=== PATIENT | female | born 1995 | race Caucasian/White ===

== ENCOUNTER 2018-03-08 23:32 | Emergency (ER) | payer OTHER ==
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
[2018-03-08 23:55] VITALS: BP 132/96; PULSE 101; TEMP 98.1; BMI 22.8
[2018-03-08] MEDS ORDERED: ACETAMINOPHEN 325 MG TABLET (FP) PO ONE (23:57)
[2018-03-09] MEDS ORDERED: ACETAMINOPHEN 325 MG TABLET (FP) ONE (00:08)
[2018-03-09 00:39] LABS: EOS % 1.9 % (0-4.5); HEMOGLOBIN 12.7 GM/dL (10.7-15.3); LYMPH % 24.8 % (8-40); MCH 31.6 pg (25.7-33.7); MCHC 34.4 g/dl (32.0-36.0); MEAN CELL VOLUME 91.8 fl (80-96); MEAN PLT VOLUME 8.9 fl (7.5-11.1); MONO % 12.7 % (3.8-10.2); NEUT % 59.6 % (42.8-82.8); PLATELET COUNT 259 K/MM3 (134-434); RBC 4.03 M/mm3 (3.60-5.2); RDW 12.7 % (11.6-15.6); WHITE BLOOD COUNT 4.6 K/mm3 (4.0-10.0)
[2018-03-09 00:41] LABS: URINE APPEARANCE CLEAR; URINE BILIRUBIN NEGATIVE (<2.0 mg/dL); URINE COLOR LTYELLOW; URINE GLUCOSE (UA) NEGATIVE (NEGATIVE); URINE KETONE NEGATIVE (NEGATIVE); URINE LEUK ESTERASE NEGATIVE (NEGATIVE); URINE NITRITE NEGATIVE (NEGATIVE); URINE PROTEIN NEGATIVE (NEGATIVE); URINE UROBILINOGEN NEGATIVE mg/dL (0.2-1.0)
[2018-03-09 00:49] LABS: EPI CELLS RARE /HPF (FEW); URINE BACTERIA RARE /hpf (NONE SEEN)
== END 2018-03-09 04:48 | disposition home or self-care (01) ==
LOC: JER 23:32
DX: O26.891 Other specified pregnancy related conditions, first trimester (principal); S63.621A Sprain of interphalangeal joint of right thumb, initial encounter; V43.52XA Car driver injured in collision with other type car in traffic accident, initial encounter; Y92.414 Local residential or business street as the place of occurrence of the external cause; Y93.89 Activity, other specified; Y99.8 Other external cause status; Z3A.09 9 weeks gestation of pregnancy
CPT/HCPCS: 36415; 73130-TC-RT-FY; 76801-TC; 81003; 81015; 84702; 85025; 86850; 86900; 86901; 87086; 99282-25

== ENCOUNTER 2018-09-30 06:24 | Inpatient (IN) | payer OTHER ==
[2018-09-30] MEDS ORDERED: DEXTROSE 5%-LACTATED RINGERS 1,000 ML IV SCH ×2 (06:25→09:30)
[2018-09-30 07:54] VITALS: BMI 31.3
[2018-09-30 07:57] LABS: ANION GAP 9 MMOL/L (8-16); BLOOD UREA NITROGEN 12 mg/dL (7-18); CALCIUM 8.5 mg/dL (8.5-10.1); CHLORIDE 105 mmol/L (98-107); CO2 20 mmol/L (21-32); CREATININE 0.4 mg/dL (0.55-1.3); GLUCOSE,RANDOM 114 mg/dL (74-106); POTASSIUM 4.1 mmol/L (3.5-5.1); SODIUM 134 mmol/L (136-145)
[2018-09-30] MEDS ORDERED: BUTORPHANOL TARTRATE 1 MG/ML VIAL ONE ×2 (08:13)
[2018-09-30] MEDS ORDERED: PROMETHAZINE HCL 25 MG/1 ML VIAL ONE (08:14)
[2018-09-30] MEDS ORDERED: PROMETHAZINE HCL 25 MG/1 ML VIAL IVPUSH ONE (08:15)
[2018-09-30] MEDS ORDERED: BUTORPHANOL TARTRATE 1 MG/ML VIAL IVPUSH ONE (08:15)
[2018-09-30 08:21] LABS: BASO % 0.2 % (0-2.0); EOS % 0.1 % (0-4.5); HEMATOCRIT 38.2 % (32.4-45.2); HEMOGLOBIN 13.8 GM/dL (10.7-15.3); MCH 33.9 pg (25.7-33.7); MCHC 36.1 g/dl (32.0-36.0); MEAN CELL VOLUME 93.7 fl (80-96); MEAN PLT VOLUME 9.6 fl (7.5-11.1); MONO % 3.2 % (3.8-10.2); NEUT % 86.5 % (42.8-82.8); PLATELET COUNT 274 K/MM3 (134-434); RBC 4.08 M/mm3 (3.60-5.2); RDW 12.8 % (11.6-15.6); WHITE BLOOD COUNT 6.7 K/mm3 (4.0-10.0)
[2018-09-30 08:24] LABS: INR 0.95 (0.83-1.09); PROTHROMBIN TIME (PATIENT) 11.2 SEC (9.7-13.0)
[2018-09-30 08:27] LABS: ACTIVATED PTT 25.2 SECONDS (25.2-36.5)
[2018-09-30] MEDS ORDERED: TUBERCULIN PPD 5 TU/0.1ML SYRINGE (IN PATIENT USE ONLY) ID ONE (09:15)
--- NOTE | 2018-09-30 09:32 | HP ---
Past Medical History - Admission Chief Complaint: Pain in labor History of Present Illness: 23 yo , LMP 01/04/18, EDC 10/11/18 @ 38.3 weeks gestation, admitted for labor pain. Upon admission she was 5cm dilated with intact membrane. History Source: Patient Limitations to Obtaining History: No Limitations - Past Medical History ...: 1 ...Para: 0 ...Term: 0 ...: 0 ...Spon : 0 ...Induced : 0 ...Multiple Gestation: 0 ...LMP: 01/04/18 ... Weeks Gestation by Dates: 38.3 ...EDC by Dates: 10/11/18 - Past Surgical History Hx Myomectomy: No Hx Transabdominal Cerclage: No - Smoking History Smoking history: Unknown if ever smoked Have you smoked in the past 12 months: No - Alcohol/Substance Use Hx Alcohol Use: No History of Substance Use: reports: None - Social History Usual Living Arrangement: Yes: With Significant Other History of Recent Travel: No Home Medications - Allergies Allergies/Adverse Reactions: Allergies Allergy/AdvReac Type Severity Reaction Status Date / Time No Known Allergies Allergy Verified 09/30/18 07:56 - Home Medications Home Medications: Ambulatory Orders Vitamin Tablet 1 tab PO DAILY 09/30/18 Family Disease History - Family Disease History Family History: Unremarkable Review of Systems - Review of Systems Constitutional: reports: No Symptoms Eyes: reports: No Symptoms HENT: reports: No Symptoms Neck: reports: No Symptoms Cardiovascular: reports: No Symptoms Respiratory: reports: No Symptoms Gastrointestinal: reports: No Symptoms Genitourinary: reports: Pain Breasts: reports: No Symptoms Reported Musculoskeletal: reports: No Symptoms Integumentary: reports: No Symptoms Neurological: reports: No Symptoms Endocrine: reports: No Symptoms Hematology/Lymphatic: reports: No Symptoms Psychiatric: reports: No Symptoms Pain Intensity: 7 Physical Exam - Maternity Vital Signs: Vital Signs Temperature 98.4 F 09/30/18 08:00 Pulse Rate 95 H 09/30/18 08:00 Respiratory Rate 20 09/30/18 09:00 Blood Pressure 135/82 09/30/18 08:00 O2 Sat by Pulse Oximetry (%) Constitutional: Yes: Well Nourished Eyes: Yes: Conjunctiva Clear HENT: Yes: Atraumatic Neck: Yes: Supple Cardiovascular: Yes: Regular Rate and Rhythm Lungs: Clear to auscultation - Abdominal Exam/OB Number of Fetuses: Single Presentation: Vertex - Vaginal Exam/OB Dilatation (cm): 5 Effacement (%): 100 Amniotic Membrane Status: Intact Station: -1 - Physical Exam ...Motor Strength: WNL Psychiatric: Yes: Alert, Oriented - Labs Lab Results: CBC, BMP 09/30/18 07:15 09/30/18 07:15 Problem List - Problems (1) Pain during labor Code(s): O99.89 - OTH DISEASES AND CONDITIONS COMPL PREG/CHLDBRTH; R52 - PAIN, UNSPECIFIED (2) 38 weeks gestation of Code(s): Z3A.38 - 38 WEEKS GESTATION OF Assessment/Plan Active labor Admit to L&D Analgesia as needed Anticipate
[2018-09-30] MEDS ORDERED: OXYTOCIN 20 UNITS in 0.9% NS 20 UNIT/1,000 ML INFUS.BAG IV ONE (10:26)
[2018-09-30] MEDS ORDERED: METHYLERGONOVINE MALEATE 0.2 MG/1 ML AMP IM PRN (11:14)
[2018-09-30] MEDS ORDERED: BISACODYL 10 MG SUPP.RECT RC PRN (11:14)
[2018-09-30] MEDS ORDERED: WITCH HAZEL 50% (TUCKS) 40 PAD/JAR PAD TP PRN (11:14)
[2018-09-30] MEDS ORDERED: BENZOCAINE 28 GM HEMORRHOIDAL OINTMENT TP PRN (11:14)
[2018-09-30] MEDS ORDERED: BENZOCAINE 20% 57 GM BOTTLE TP PRN (11:14)
[2018-09-30] MEDS ORDERED: OXYTOCIN 20 UNITS in 0.9% NS 20 UNIT/1,000 ML INFUS.BAG IV SCH (11:15)
--- NOTE | 2018-09-30 11:19 | PN ---
Delivery - Delivery Vaginal Delivery: Spontaneous Type of Anesthesia: Local Episiotomy/Laceration: Midline, 3rd degree EBL (cc): 300 Delivery, Single - Stages of Labor Date 1st Stage Initiatied: 09/30/18 Time 1st Stage Initiated: 05:00 Date 2nd Stage Initiated: 09/30/18 Date of Delivery: 09/30/18 - Feeding Plan Initial Plan: Exclusive throughout hospitalization Remarks - Remarks Remarks: Normal spontaneous vaginal delivery of a live girl over midline episiotomy. Nose / Oropharynx suctioned @ perineum. Cord clamped and cut. Baby handed to Nurse. Placenta expelled spontaneously intact. Episiotomy repaired in layers with 2.0 Chromic and 2.0 Biosyn.
[2018-09-30] MEDS ORDERED: ACETAMINOPHEN 325 MG TABLET (FP) ONE (12:45)
[2018-09-30] MEDS ORDERED: IBUPROFEN 600 MG TABLET (FP) PO ONE (12:46)
[2018-09-30] MEDS: ACETAMINOPHEN 325 MG TABLET (FP) PO PRN ×2 (12:55→23:29)
[2018-09-30] MEDS: IBUPROFEN 600 MG TABLET (FP) PO PRN ×2 (12:55→23:29)
[2018-09-30] MEDS: FERROUS SO4 325 MG TABLET (FP) PO SCH (22:06)
--- NOTE | 2018-10-01 08:15 | PN ---
Post Progress Note - Subjective Subjective: 23yo Para 1 statu spost vaginal delivery, seen and evaluated. Doing well. Post Day: 1 Type of Delivery: Vital Signs: Vital Signs Temperature 97.9 F 10/01/18 05:29 Pulse Rate 86 10/01/18 05:29 Respiratory Rate 20 10/01/18 05:29 Blood Pressure 114/56 L 10/01/18 05:29 O2 Sat by Pulse Oximetry (%) 99 09/30/18 11:30 Breast Exam: Yes: Soft Uterus: Yes: Fundus Firm Abdomen/GI: Yes: Abdomen soft, Tolerating PO Lochia: Yes: Rubra Lochia, amount: Small Extremities: Yes: Calves non-tender Activity: Ambulating - Labs Labs: CBC WBC 6.7 K/mm3 (4.0-10.0) 09/30/18 07:15 RBC 4.08 M/mm3 (3.60-5.2) 09/30/18 07:15 Hgb 13.8 GM/dL (10.7-15.3) 09/30/18 07:15 Hct 38.2 % (32.4-45.2) 09/30/18 07:15 MCV 93.7 fl (80-96) 09/30/18 07:15 MCH 33.9 pg (25.7-33.7) H 09/30/18 07:15 MCHC 36.1 g/dl (32.0-36.0) H 09/30/18 07:15 RDW 12.8 % (11.6-15.6) 09/30/18 07:15 Plt Count 274 K/MM3 (134-434) 09/30/18 07:15 MPV 9.6 fl (7.5-11.1) 09/30/18 07:15 Absolute Neuts (auto) 5.8 K/mm3 (1.5-8.0) 09/30/18 07:15 Neutrophils % 86.5 % (42.8-82.8) H D 09/30/18 07:15 Lymphocytes % 10.0 % (8-40) D 09/30/18 07:15 Monocytes % 3.2 % (3.8-10.2) L 09/30/18 07:15 Eosinophils % 0.1 % (0-4.5) D 09/30/18 07:15 Basophils % 0.2 % (0-2.0) 09/30/18 07:15 Nucleated RBC % 0 % (0-0) 09/30/18 07:15 Problem List - Problems (1) Pain during labor Code(s): O99.89 - OTH DISEASES AND CONDITIONS COMPL PREG/CHLDBRTH; R52 - PAIN, UNSPECIFIED (2) 38 weeks gestation of Code(s): Z3A.38 - 38 WEEKS GESTATION OF (3) Status post normal vaginal delivery Code(s): [id number] - Assessment/Plan Status post vaginal delivery Stable Continue routine care
[2018-10-01 08:47] LABS: BASO % 0.4 % (0-2.0); EOS % 0.9 % (0-4.5); HEMATOCRIT 30.4 % (32.4-45.2); LYMPH % 18.2 % (8-40); MCH 31.7 pg (25.7-33.7); MCHC 32.8 g/dl (32.0-36.0); MEAN CELL VOLUME 96.5 fl (80-96); MEAN PLT VOLUME 9.1 fl (7.5-11.1); MONO % 8.7 % (3.8-10.2); NEUT % 71.8 % (42.8-82.8); PLATELET COUNT 175 K/MM3 (134-434); RBC 3.15 M/mm3 (3.60-5.2); RDW 12.8 % (11.6-15.6); WHITE BLOOD COUNT 8.7 K/mm3 (4.0-10.0)
[2018-10-01] MEDS: PRENATAL VITAMINS W/ FOLIC ACID TABLET (FP) PO SCH (10:43)
[2018-10-01] MEDS: FERROUS SO4 325 MG TABLET (FP) PO SCH ×2 (10:43→21:04)
[2018-10-01] MEDS: ACETAMINOPHEN 325 MG TABLET (FP) PO PRN (10:44)
[2018-10-01] MEDS: IBUPROFEN 600 MG TABLET (FP) PO PRN (10:45)
[2018-10-01] MEDS ORDERED: SENNOSIDES/DOCUSATE COMBO (SENNA PLUS) TABLET (UD) PO PRN (22:00)
[2018-10-02] MEDS: ACETAMINOPHEN 325 MG TABLET (FP) PO PRN (01:23)
[2018-10-02] MEDS: IBUPROFEN 600 MG TABLET (FP) PO PRN (01:24)
[2018-10-02 08:47] VITALS: TEMP 98.2
[2018-10-02] MEDS: PRENATAL VITAMINS W/ FOLIC ACID TABLET (FP) PO SCH (09:55)
[2018-10-02] MEDS: FERROUS SO4 325 MG TABLET (FP) PO SCH (09:55)
--- NOTE | 2018-10-02 12:00 | DS ---
Physical Exam-SALES AND SERVICE AGENT Vital Signs: Vital Signs Temperature 98.2 F 10/02/18 08:44 Pulse Rate 78 10/02/18 08:44 Respiratory Rate 18 10/02/18 08:44 Blood Pressure 135/80 10/02/18 08:44 O2 Sat by Pulse Oximetry (%) 99 09/30/18 11:30 Constitutional: Yes: Well Nourished Eyes: Yes: Conjunctiva Clear HENT: Yes: Atraumatic Neck: Yes: Supple Cardiovascular: Yes: Regular Rate and Rhythm Respiratory: Yes: Regular Gastrointestinal: Yes: Normal Bowel Sounds External Genitalia: Yes: Normal ....Post : Yes: Uterus firm, Moderate lochia serosa Neurological: Yes: Alert, Oriented Psychiatric: Yes: Alert, Oriented Labs: CBC, BMP 10/01/18 06:45 09/30/18 07:15 Delivery - Delivery Vaginal Delivery: Spontaneous Type of Anesthesia: Local Episiotomy/Laceration: Midline EBL (cc): 300 Delivery, Single - Stages of Labor Date 1st Stage Initiatied: 09/30/18 Time 1st Stage Initiated: 05:00 Date 2nd Stage Initiated: 09/30/18 Time 2nd Stage Initiated: 10:10 Date of Delivery: 09/30/18 Time of Delivery: 10:41 Time Placenta Delivered: 10:45 - Condition of Precision Dyer/Moto Mix Operator Present: No Gender: Female Weight: 7 lb 12 oz Position: Left, OA Total Hours ROM (Hrs/Mins): 1 HR 25 MINS - 1 Minute Total Score: 9 5 Minutes Total Score: 9 - [place] Feeding Plan Initial Plan: Exclusive throughout hospitalization Discharge Summary Reason For Visit: LABOR Current Active Problems 38 weeks gestation of (Acute) Pain during labor (Acute) Status post normal vaginal delivery (Acute) Procedures: Principal: Normal spontaneous vaginal delivery Hospital Course: Routine care Condition: Good - Instructions Diet, Activity, Other Instructions: Regular diet No douching, no sexual intercourse x 6 weeks. F/U with MD in 6 weeks Disposition: HOME - Home Medications Comprehensive Discharge Medication List: Ambulatory Orders Vitamin Tablet 1 tab PO DAILY 09/30/18
[2018-10-02 12:10] VITALS: BP 132/79; PULSE 92
== END 2018-10-02 01:45 | disposition home or self-care (01) | DRG 542 ==
LOC: JLDR 06:24 → J3W 13:00
PROVIDERS: ADMIT Obstetrics & Gynecology; ATTEND Obstetrics & Gynecology
PROC: 10E0XZZ Delivery of Products of Conception, External Approach (ICD-10-PCS; principal; 2018-09-30)
PROC: 0W8NXZZ Division of Female Perineum, External Approach (ICD-10-PCS; 2018-09-30)
PROC: 0DQR0ZZ Repair Anal Sphincter, Open Approach (ICD-10-PCS; 2018-09-30)
DX: O70.20 Third degree perineal laceration during delivery, unspecified (principal); Z3A.38 38 weeks gestation of pregnancy; Z37.0 Single live birth
CPT/HCPCS: 36415; 59409; 80048; 85025; 85610; 85730; 86593; 86850; 86900; 86901